=== PATIENT | female | born 1950 | race Caucasian/White ===

== ENCOUNTER 2020-01-05 14:02 | Outpatient (CLI) | payer MEDICARE, BC, OTHER ==
[~2020-01-05] VITALS: Ht 167.6 cm; Wt 79.0 kg
[~2020-01-05 14:02] MED LIST: ASPIRIN 81M81 MG/TA2 PO; ATIVAN 1MG T1 MG/TAB PO; CARDIZEM CD 30300 MG PO; CEFTIN500 MG PO; CIPRO 500MG TA500 MG PO; DEXILANT60 MG PO; OMNICEF 300MG300 MG PO; PERCOCET 325 MG1 TA2 PO; PHARMASSURE MA500 MG PO; PROAIR HFA0.09 MG/AC IH; RT ADVAIR 128 DISKUS IH; RT SPIRIVA18 MCG IH; SINGULAIR10 MG PO; VITAMIN D31000 IU PO; ZOFRAN ODT4 MG PO; ZYRTEC 10MG
[2020-01-05 14:36] VITALS: BP 143/76; PULSE 67; TEMP 99
[2020-01-05] MEDS ORDERED: ASPIRIN E.C. 8181 MG PO (15:15)
[2020-01-05] MEDS ORDERED: VITAMIND3 5000 PO (15:16)
[2020-01-05] MEDS ORDERED: BENADRYL25 M2 PO (15:17)
[2020-01-05] MEDS ORDERED: TOPROL XL 25MG25 MG (15:17)
== END 2020-01-05 14:45 | disposition home or self-care (01) ==
LOC: EUO 14:02
DX: M81.0 Age-related osteoporosis without current pathological fracture (principal)
CPT/HCPCS: J3489